=== PATIENT | female | born 1980 | race Caucasian/White ===

== ENCOUNTER 2019-05-12 17:10 | Emergency (ER) | payer MEDICAID, OTHER ==
[2019-05-12] MEDS ORDERED: Diph,Pert(Acell),Tet Vac 0.5 ML SYR IM ONE (17:53)
--- NOTE | 2019-05-12 18:01 | Emergency Department Record ---
History of Present Illness - General Chief Complaint: Bloodborne Pathogen Exposure Stated Complaint: NEEDLE STICK Time Seen by Provider: 05/12/19 17:31 Source: Patient Mode of Arrival: Ambulatory Limitations: No limitations - History of Present Illness Initial comments: The patient is here due to a needle stick injury to her R 3rd finger 2 weeks ago. She did not seek care at the time. The patient has no complaints but her Td is not UTD. She states the source patient is not high risk for HIV or Hepatitis. Onset/Timin -: Week(s) - [place] Coma Scale Eye Response: (4) Open spontaneously Motor Response: (6) Obeys commands Verbal Response: (5) Oriented [place] Total: 15 - Related Data Home Medications Medication Instructions Recorded Confirmed Last Taken No Home Med [NO HOME MEDS] 05/12/19 05/12/19 Unknown Allergies Allergy/AdvReac Type Severity Reaction Status Date / Time Penicillins Allergy ANAPHYLAXIS Verified 05/12/19 17:28 Travel Screening - Travel/Exposure Within Last 30 Days Have you traveled within the last 30 days?: No - Travel/Exposure Within Last Year Have you traveled outside the [place] in the last year?: No - Additonal Travel Details Have you been exposed to anyone with a communicable illness?: No - Travel Symptoms Symptom Screening: None Review of Systems Constitutional: Denies: Chills, Fever Past Medical History - SOCIAL HISTORY Smoking Status: Never smoker Alcohol Use: Occasional Drug Use: None - RESPIRATORY Hx Respiratory Disorders: No - CARDIOVASCULAR Hx Cardio Disorders: No - NEURO Hx Neuro Disorders: No - GI Hx GI Disorders: No - Hx Genitourinary Disorders: No - ENDOCRINE Hx Endocrine Disorders: No - MUSCULOSKELETAL Hx Musculoskeletal Disorders: No - PSYCH Hx Psych Problems: No - HEMATOLOGY/ONCOLOGY Hx Hematology/Oncology Disorders: No Hx Cancer: No Family Medical History Any Significant Family History?: Yes Physical Exam - General General Appearance: Alert, Cooperative, No acute distress - Head Head exam: Atraumatic - Eye Eye exam: Normal appearance - Extremities Extremities exam: Normal inspection (The finger has no signs of any trauma or injury.), Full ROM. negative: Tenderness Course Vital Signs 05/12/19 17:17 Temperature 98.2 F Pulse Rate 83 Respiratory 16 Rate Blood Pressure 123/91 - Reevaluation(s) Reevaluation #1: The patient is declining any HIV propyhylaxis due to the age of the wound. She is to F/U in [place] for further evaluation. 05/12/19 18:10 Disposition Disposition: Discharge Clinical Impression: Needle stick injury of finger Disposition: Home, Self-Care Condition: (2) Stable Instructions: Needle Stick Injuries (ED) Additional Instructions: Please follow up at [facility] as directed. Forms: Patient Portal Access Time of Disposition: 18:01 Quality - Quality Measures Quality Measures: N/A - Blood Pressure Screening View Details: Yes Does Patient Have Any of the Following: No Blood Pressure Classification: Hypertensive Reading Systolic Measurement: 123 Diastolic Measurement: 91 Screening for High Blood Pressure: < First Hypertensive BP, F/U Documented > [[id number]] First Hypertensive Follow-up Interventions: Referral to alternative/primary care provider.
[2019-05-13 23:22] LABS: HEPATITIS B SURFACE ANTIBODY >1000.00 mIU/mL; HEPATITIS C VIRUS ANTIBODY Nonreactive (Nonreactive)
== END 2019-05-12 18:03 | disposition home or self-care (01) ==
LOC: ER 17:10
DX: S60.413A Abrasion of left middle finger, initial encounter (principal); W46.0XXA Contact with hypodermic needle, initial encounter; Y93.F9 Activity, other caregiving; Y92.531 Health care provider office as the place of occurrence of the external cause; Y99.0 Civilian activity done for income or pay
CPT/HCPCS: 87390; 90715; 96372; 99283